=== PATIENT | male | born 1975 | race African-American/Black ===

== ENCOUNTER 2018-08-04 01:33 | Emergency (ER) | payer BC, OTHER ==
[~2018-08-04] VITALS: Ht 185.4 cm; Wt 88.5 kg
[2018-08-04 01:40] VITALS: BP 127/89
== END 2018-08-04 02:36 | disposition home or self-care (01) ==
LOC: ER 01:33
DX: S01.81XA Laceration without foreign body of other part of head, initial encounter (principal); X99.0XXA Assault by sharp glass, initial encounter; Y93.89 Activity, other specified; Y92.89 Other specified places as the place of occurrence of the external cause; Y99.8 Other external cause status